=== PATIENT | female | born 1950 | race Caucasian/White ===

== ENCOUNTER → 2017-04-02 | Outpatient (CLI) | payer MEDICARE ==
[~2017-04-02] MED LIST: AMLO10TA2 PO; CLON0.2T PO; CONTRAST GIVEN MC PRN; IOHEXOL 300 MG/ML 100ML VIAL. IV ONE; LISI40TA PO; MELO7.5T29 PO
--- NOTE | 2017-04-02 12:08 | KCIC ---
PQRS Compliance Statement: One or more of the following individualized dose reduction techniques were utilized for this examination: 1. Automated exposure control 2. Adjustment of the mA and/or kV according to patient size 3. Use of iterative reconstruction technique ABDOMEN CT WITH CONTRAST: 04/02/2017 11:30 AM Indication: 66 years old Female. Back pain, abdominal pain with aneurysm on outside MRI. Comparison Studies: None. Technique: Multiple axial images of the abdomen were obtained following the intravenous administration of 77 cc Omnipaque 300. Oral contrast was also administered. Two-dimensional coronal and sagittal reconstructions were obtained. Findings: LUNG BASES: Unremarkable. ABDOMEN: LIVER: Subcentimeter hypodense lesions within the left hepatic lobe are statistically favor to represent simple cysts. No suspicious hepatic masses are identified. BILE DUCTS: Mild prominence of the common bile duct measuring 8 mm. GALLBLADDER: No calcified gallstones. PANCREAS: Within normal limits. SPLEEN: Within normal limits. ADRENAL GLANDS: Within normal limits. KIDNEYS: There is a 3 mm nonobstructing calculus in the midpole the left kidney. There is no hydronephrosis. No suspicious renal mass. Peripheral cortical subcentimeter hypodensities in the midpole the right kidney may represent simple cysts. BOWEL: Nondilated without adjacent inflammatory changes. PERITONEUM: No ascites or free air. No fluid collection. VASCULATURE: There is an infrarenal abdominal aortic aneurysm measuring 4.1 x 3.8 cm. 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 There is high-grade stenosis of the aorta secondary to calcified atheromatous plaque with decreased filling of the abdominal aorta inferior to this level (series 2, image 21). There is no significant opacification of the aorta at the level of the aneurysm to evaluate for degree of intraluminal thrombus or dissection. Extensive collateral vasculature is suspected, incompletely evaluated. RETROPERITONEUM: Within normal limits. ABDOMINAL WALL: Within normal limits. LYMPH NODES: No lymphadenopathy in the abdomen. BONES: No acute fracture. Moderate degenerative changes of the lumbar spine are identified. IMPRESSION: 1. There is significant aorto occlusive atherosclerotic calcification immediately beyond the origin of the superior mesenteric artery. Kidneys are perfused. Evaluation is limited due to the lack of opacification of the abdominal aorta inferior to the level of high-grade stenosis from calcified atherosclerotic plaque. 2. Suggestion of high-grade stenosis at the origin of the superior mesenteric artery with reconstitution distally likely from collateral vasculature from the celiac axis. 3. Infrarenal abdominal aortic aneurysm measuring 4.1 x 3.8 cm. Further evaluation with CT angiogram of the abdomen and pelvis is recommended. Electronically signed by: Ava Grider MD (04/02/2017 12:05 PM) [place] [id number]
== END | disposition home or self-care (01) ==
LOC: KCIC CT 11:11
PROVIDERS: ATTEND Physician Assistant Surgical
DX: I71.4 Abdominal aortic aneurysm, without rupture (principal); M54.9 Dorsalgia, unspecified; I70.0 Atherosclerosis of aorta; I35.0 Nonrheumatic aortic (valve) stenosis
CPT/HCPCS: 74160; 82565; Q9967

== ENCOUNTER → 2018-02-12 | Outpatient (CLI) | payer MEDICARE ==
[~2018-02-12] MED LIST changes: -CONTRAST GIVEN MC PRN; -IOHEXOL 300 MG/ML 100ML VIAL. IV ONE; +LISI-130 PO; -LISI40TA PO
--- NOTE | 2018-02-12 16:26 | KCIC ---
EXAM: Thyroid sonogram. HISTORY: Hyperthyroidism. TECHNIQUE: Sonographic imaging of the thyroid was performed. COMPARISON: None. FINDINGS: The right thyroid lobe measures 5.9 x 2.4 x 2.4 cm. The left thyroid lobe measures 4.6 x 1.5 x 1.3 cm. The isthmus measures 2.6 mm. The thyroid parenchyma is diffusely heterogeneous, hypervascular and contains innumerable nodules and cysts. The largest lesion is a heterogeneous solid nodule with small cystic component within the superior left thyroid lobe measuring 1.9 x 1.4 x 1.0 cm. The second largest nodule is a heterogeneous suspected mixed solid and cystic lesion containing microcalcifications within the superior right thyroid lobe measuring 1.8 x 1.4 x 1.0 cm. The third largest lesion is a mixed solid and cystic nodule containing suspected calcifications in the right lower mid zone measuring 1.3 x 1.2 x 1.0 cm. The fourth largest lesion is a solid slightly hypoechoic nodule containing calcifications within the superior left thyroid lobe measuring 1.9 x 1.4 x 1.0 cm. The fifth largest lesion is a predominant solid slightly hypoechoic nodule containing calcifications within the inferior right thyroid lobe measuring 1.3 x 1.2 x 0.9 cm. IMPRESSION: 1. Multiple heterogeneous thyroid nodules, the largest of which measure 1.9 cm within the left thyroid lobe and 1.8 cm within the right thyroid lobe. These dominant lesions are amenable to sonographic guided fine-needle aspiration if not previously performed or if there is no prior study to assess for interval stability. 2. Diffusely heterogeneous enlarged and hypervascular thyroid. This can be seen as a sequela of thyroiditis. Electronically signed by: Rola Jhaveri MD (02/12/2018 4:23 PM) [place] [id number]
== END | disposition home or self-care (01) ==
LOC: KCIC US 14:16
PROVIDERS: ATTEND Physician Assistant Surgical
DX: E04.1 Nontoxic single thyroid nodule (principal); E03.9 Hypothyroidism, unspecified
CPT/HCPCS: 76536